=== PATIENT | female | born 1945 | race American Indian/Alaskan Native ===

== ENCOUNTER 2017-08-04 19:06 | Emergency (ER) | payer MEDICARE ==
[2017-08-04 20:16] LABS: Basophils % (Auto) 0.8 % (0.0-1.8); Eosinophils # (Auto) 0.2 K/mm3 (0.0-0.4); Eosinophils % (Auto) 3.9 % (0.0-4.3); Hematocrit 38.7 % (30.3-42.9); Hemoglobin 12.5 gm/dl (10.1-14.3); Lymphocytes # (Auto) 2.5 K/mm3 (1.2-5.4); Lymphocytes % (Auto) 44.4 % (13.4-35.0); Mean Corpuscular HGB Conc 32 % (30-34); Mean Corpuscular Hemoglobin 29 pg (28-32); Mean Corpuscular Volume 89 fl (79-97); Monocytes # (Auto) 0.5 K/mm3 (0.0-0.8); Monocytes % (Auto) 8.3 % (0.0-7.3); Platelet Count 232 K/mm3 (140-440); Red Blood Count 4.36 M/mm3 (3.65-5.03); Red Cell Distribution Width 14.8 % (13.2-15.2)
[2017-08-04 20:30] LABS: BUN/Creatinine Ratio 18; Blood Urea Nitrogen 14 mg/dL (7-17); Calcium 9.1 mg/dL (8.4-10.2); Hemolysis Index 55
[2017-08-04 20:34] LABS: Bacteria,Urine 1+ /HPF (Negative); Bilirubin,Urine NEG (Negative); Blood,Urine NEG (Negative); Color,Urine Yellow (Yellow); Mucus,Urine FEW /HPF; Nitrite,Urine POS (Negative); Protein,Urine <15 mg/dL mg/dL (Negative)
[2017-08-04 20:44] LABS: Amphetamine Screen,Urine PRESUMPTIVE NEGATIVE; Benzodiazepines Screen,Urine PRESUMPTIVE NEGATIVE; Cannabinoid Screen,Urine PRESUMPTIVE NEGATIVE; Cocaine Screen,Urine PRESUMPTIVE NEGATIVE; Methadone Screen,Urine PRESUMPTIVE NEGATIVE; Opiate Screen,Urine PRESUMPTIVE NEGATIVE
--- NOTE | 2017-08-05 11:20 | Emergency Department Report ---
ED Chest Pain HPI - General Chief Complaint: Chest Pain Stated Complaint: CHEST PAIN Time Seen by Provider: 08/05/17 10:15 Source: patient Mode of arrival: Ambulatory Limitations: No Limitations - History of Present Illness Initial Comments: Patient is a 72-year-old [place] female who is presenting with pleuritic chest pain has been present for approximately 24 hours. Patient states she has had this issue off and on for probably 5 years sporadically. Patient states that the pain is sharp with breathing. Patient states there is some mild shortness of breath. Patient states this will last several minutes and resolved spontaneously however it is intermittent. Patient states she has had some stress for the last several years that she attributes this pain 2. Patient states she had a stress test approximately 2 years ago that was negative. Patient has a mild cough is nonproductive that is chronic. Patient denies nausea vomiting diarrhea or productive cough fevers chills sore throat and body aches at this time. Patient also states that this pain is nonpleuritic. On further questioning when patient arrived 15 hours ago patient states that she had a verbal altercation before this pain started. Patient initially was having some suicidal thoughts but is not having suicidal thoughts at this time. - Related Data Allergies Allergy/AdvReac Type Severity Reaction Status Date / Time codeine Allergy Nausea Verified 08/04/17 19:41 morphine Allergy Itching Verified 08/04/17 19:40 Heart Score - HEART Score History: Slightly suspicious EKG: Normal Age: > 65 Risk factors: No known risk factors Troponin: < normal limit HEART Score: 2 ED Review of Systems ROS: Stated complaint: CHEST PAIN Other details as noted in HPI Comment: All other systems reviewed and negative ED Past Medical Hx - Past Medical History Previous Medical History?: Yes Hx Psychiatric Treatment: Yes Additional medical history: gout, uti - Surgical History Past Surgical History?: Yes Additional Surgical History: Depression - Social History Smoking Status: Never Smoker Substance Use Type: None ED Physical Exam - General Limitations: No Limitations General appearance: alert, in no apparent distress - Head Head exam: Present: atraumatic, normocephalic - Eye Eye exam: Present: normal appearance - ENT ENT exam: Present: mucous membranes moist - Neck Neck exam: Present: normal inspection - Respiratory Respiratory exam: Present: normal lung sounds bilaterally. Absent: respiratory distress, wheezes, rales, rhonchi - Cardiovascular Cardiovascular Exam: Present: normal rhythm, tachycardia. Absent: regular rate , systolic murmur, diastolic murmur, rubs, gallop - GI/Abdominal GI/Abdominal exam: Present: soft, normal bowel sounds. Absent: distended, tenderness, guarding, rebound - Extremities Exam Extremities exam: Present: normal inspection - Back Exam Back exam: Present: normal inspection - Neurological Exam Neurological exam: Present: alert, oriented X3 - Psychiatric Psychiatric exam: Present: normal affect, normal mood - Skin Skin exam: Present: warm, dry, intact, normal color. Absent: rash ED Course Vital Signs 08/04/17 08/05/17 08/05/17 19:32 11:29 11:58 Temperature 98.7 F 98.2 F Pulse Rate 97 H 76 Respiratory 16 16 Rate Blood Pressure 138/79 Blood Pressure 140/75 [Right] O2 Sat by Pulse 97 99 Oximetry - Reevaluation(s) Reevaluation #1: 08/05/17 11:22 Patient was chest pain-free during the history of physical for the patient. Patient was still slightly tachycardic however and with her history of pleuritic chest pain CTA of the chest will be done at this time. This will be done to rule out PE. Patient started been ruled out for NH with 3 negative troponins. ED Medical Decision Making - Lab Data Result diagrams: 08/04/17 19:59 08/04/17 19:59 - EKG Data -: EKG Interpreted by Me Rate: tachycardia - EKG Data Interpretation: other (EKG shows sinus tachycardia at [address] elevation or depressions normal intervals normal axis, interpretation 1917) - Radiology Data Radiology results: report reviewed No pulmonary embolus seen on CTA of the chest - Medical Decision Making Patient is 72-year-old [place] female who is pain-free at this time who was presenting with tachycardia and chest pain that was pleuritic PE is ruled out as well as NH patient be discharged home with cardiology follow-up Critical Care Time: Yes Critical care time in (mins) excluding proc time.: 30 Critical care attestation.: If time is entered above; I have spent that time in minutes in the direct care of this critically ill patient, excluding procedure time. ED Disposition Clinical Impression: Atypical chest pain, Stress at home Disposition: - TO HOME OR SELFCARE Is pt being admited?: No Does the pt Need Aspirin: No Condition: Fair Instructions: Chest Pain (ED) Referrals: CHUCK SUBRAMANIAN MD [Staff Physician] - 3-5 Days
[2017-08-05 11:58] VITALS: BP 140/75
--- NOTE | 2017-08-05 12:12 | Cat Scan Report ---
CTA CHEST INDICATION: Pleuritic chest pain, tachycardia. COMPARISON: None similar at this institution. FINDINGS: Chest CTA performed following intravenous administration of 100 cc of Omnipaque 350. Rotational MIP's also obtained. Normal heart size. No effusions. No aortic aneurysm, dissection or suspicious pulmonary arterial filling defects. Patent central airway. Slight hilar lymph node prominence, though not size significant. 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 Otherwise normal imaged thyroid lobes. Mild lingular and medial right middle lobe scarring. Nonspecific, 4 mm noncalcified peripheral left lower lobe pleural-based nodule, axial image 128, series 2 with a similar finding on the right, axial image 126, presumed post inflammatory. A 0.7 cm noncalcified ovoid left lower lobe nodule also noted on axial image 183. Nonspecific distal esophageal wall prominence/thickening, not excluded for gastroesophageal reflux and/or hiatal hernia, amongst others. Subtle hepatic surface nodularity/cirrhosis not excluded partially imaged. Multilevel spinal degenerative changes as endplate irregularities/Schmorl's nodes, disc degeneration and predominantly right-sided thoracic osteophytes. CONCLUSION: No acute chest CT evidence of pulmonary embolism in this patient with various other findings as indeterminate superior mediastinal mass, questionable cirrhosis and few sub-centimeter, indeterminate lower lung nodules, amongst others, as detailed above. Please also correlate clinically and with prior relevant imaging, if available, as the next step. Thank you for the opportunity to participate in this patient's care.
== END 2017-08-05 13:53 | disposition home or self-care (01) ==
LOC: ED 19:06
DX: F43.9 Reaction to severe stress, unspecified (principal); R07.89 Other chest pain
CPT/HCPCS: 36415; 71275; 80048; 80307; 81001; 84484; 85025; 93005; 93010; 99291; Q9967

== ENCOUNTER 2017-08-06 09:27 | Emergency (ER) | payer MEDICARE ==
--- NOTE | 2017-08-06 17:33 | Emergency Department Report ---
HPI - General Chief Complaint: Extremity Injury, Lower Time Seen by Provider: 08/06/17 15:58 - HPI HPI: Patient reports that she has left foot gout 1 day. She says she's been eating a lot of things that she was not supposed to and she got up this morning with her left foot swollen. She's had previous episode in the past. Reports swelling and pain to left foot. Patient was here yesterday for chest pain which she said she is not having any chest pain at present. She was discussed the back to the assisted living facility. She said her daughter dropped her off here and will pick her up. Denies any fever or chills. Denies any shortness of breath. Denies any difficulty breathing.. Pain to left foot is 10 out of 10 and throbbing and achy. She says she didn't take any pain medication. She does have a history of gout, depression, chest pain, UTI and urinary incontinence. Pain worse with touch and better with rest and ED Past Medical Hx - Past Medical History Previous Medical History?: Yes Hx Psychiatric Treatment: Yes (depression) Additional medical history: gout, uti, chest pains at times, Weak bladder, UIncontinence - Surgical History Past Surgical History?: Yes Additional Surgical History: González.Knee replacement, Hysterectomy - Family History Family history: hypertension - Social History Smoking Status: Former Smoker Substance Use Type: Prescribed - Medications Home Medications: Home Medications Medication Instructions Recorded Confirmed Last Taken Type Ibuprofen [Motrin] 600 mg PO Q8H PRN #15 tablet 08/06/17 Unknown Rx predniSONE [Deltasone] 50 mg PO QDAY 5 Days #5 tab 08/06/17 Unknown Rx ED Review of Systems ROS: Stated complaint: L FOOT PAIN Other details as noted in HPI Comment: All other systems reviewed and negative Constitutional: no symptoms reported Respiratory: no symptoms reported Cardiovascular: denies: chest pain, palpitations, dyspnea on exertion, edema, syncope, paroxysmal nocturnal dyspnea Gastrointestinal: denies: abdominal pain, nausea, vomiting, diarrhea, constipation Genitourinary: denies: dysuria, hematuria Musculoskeletal: joint swelling, arthralgia. denies: back pain, myalgia Skin: denies: rash Neurological: denies: headache, weakness, numbness, paresthesias Physical Exam - Physical Exam Vital Signs: Vital Signs 08/06/17 10:36 Temperature 98.6 F Pulse Rate 77 Respiratory 16 Rate Blood Pressure 141/74 O2 Sat by Pulse 100 Oximetry General: This is a 68 4[age] female well-nourished well-developed in no acute distress. Physical Exam: Head: Normocephalic, atraumatic, no abrasion, no bruising and no contusion. Eyes: Biateral pupils equal and reactive to light, bilateral EOM intact.. Bilateral conjunctival and sclera without injection, normal accommodation. No nystagmus Neck: Supple, No Cervical adenopathy, full range of motion and no C-spine tenderness. No swelling or tracheal deviation normal reflexes Cardiovascular: S1, S2. Regular rate and rhythm. No murmur. Capillary refill is less then 3 seconds. Lungs: Clear to auscultate bilaterally. No rhonchi, wheezes or rales. No chest wall tenderness. No chest contusion. No bruising to chest. MSK: Strength 5/5 in all extremities. No joint deformity or crepitus. Normal inspection. Full range of motion to all extremities. No laceration, abrasion or ecchymotic area noted. P Abdomen: Non-tender to palpate in all quadrants, no guarding or rebound tenderness, positive bowel sounds in all quadrants. No CVA tenderness. No hernia, bruit or mass. No rigidity or distention. Extremities: No clubbing, cyanosis . Mild swelling noted to left other ankle with mild erythema and tenderness to palpate Area warm to touch. +2 pulses. No neurovascular compromise. Skin: Clean, dry and intact. No rash or lesions. Psych: Normal mood and behavior ED Course Vital Signs 08/06/17 10:36 Temperature 98.6 F Pulse Rate 77 Respiratory 16 Rate Blood Pressure 141/74 O2 Sat by Pulse 100 Oximetry - Reevaluation(s) Reevaluation #1: 08/06/17 17:56 Patient given Toradol 30 mg IM and prednisone 60 mg by mouth for gout flareup. ED Medical Decision Making - Medical Decision Making ED course: Is a 72-year-old female well-nourished well-developed here complaining of gout flareup from. She is reporting pain to left lower extremity. Physical findings for left ankle tender to palpate, mild erythema and swelling. Patient does have a history of gout and she says she does not really take any medication at present for gout. She's had several flareup in the past per patient underwent she eats food that she is not supposed to. Patient was given prednisone 60 mg by mouth and Toradol 30 mg IM in emergency room for gout flareup. I discussed diagnosis, diet and treatment plan with patient and she voiced understanding. Patient discharged from emergency room in stable condition with prescription for prednisone and Motrin and to follow- up with her primary care physician which she does have one in 2-3 days Critical care attestation.: If time is entered above; I have spent that time in minutes in the direct care of this critically ill patient, excluding procedure time. ED Disposition Clinical Impression: Arthralgia of left ankle Gout attack Qualifiers: Gout site: ankle Gout etiology: unspecified cause Laterality: left Qualified Code(s): M10.9 - Gout, unspecified Disposition: TO HOME OR SELFCARE Is pt being admited?: No Does the pt Need Aspirin: No Condition: Stable Instructions: Arthralgia (ED), Acute Gouty Arthritis (ED), Low Purine Diet (ED) Additional Instructions: Please see discharge instructions on foods that are low in purine. Try to avoid foods that cause gout flareup Take Medication as prescribed Increasy fluid intake Prescriptions: Ibuprofen [Motrin] 600 mg PO Q8H PRN #15 tablet PRN Reason: Pain predniSONE [Deltasone] 50 mg PO QDAY 5 Days #5 tab Referrals: PRIMARY CARE, [Primary Care Provider] - 2-3 Days
[2017-08-06] MEDS ORDERED: DELTASONE PO ONE (17:34)
[2017-08-06] MEDS ORDERED: TORADOL IM ONE (17:34)
[2017-08-06 18:27] VITALS: BP 133/82
== END 2017-08-06 18:26 | disposition home or self-care (01) ==
LOC: ED 09:27
DX: M10.9 Gout, unspecified (principal); M25.572 Pain in left ankle and joints of left foot; Z87.891 Personal history of nicotine dependence
CPT/HCPCS: 96372; 99282; J1885; J7512